=== PATIENT | female | born 1970 | race Caucasian/White ===

== ENCOUNTER → 2020-09-26 | Outpatient (CLI) | payer OTHER ==
--- NOTE | 2020-09-27 04:17 | MR ---
EXAMINATION TYPE: MR shoulder LT wo con DATE OF EXAM: 09/26/2020 COMPARISON: None HISTORY: Left Shoulder Pain x 7years Multiplanar multiecho imaging of the left shoulder was performed without contrast. There is 18 mm area of increased fluid signal in the anterior aspect of the humeral head. The suprasp inatus tendon is intact. There is no retraction. The biceps tendon is intact. Subscapularis tendon is intact. Glenoid lyubov appear normal. I see no fracture line. Scapula is intact. There is small amoun t of fluid in the subacromial bursa. There is small shoulder joint effusion. IMPRESSION: No definite tear of the supraspinatus tendon. There is some significant degenerative thinning of the tendon however on the anterior aspect of the tendon. There is slight increased joint fluid at the glory ulder and also subacromial bursa consistent with some synovitis. Increased fluid signal in the anterior humeral head suggestive of a bone bruise or degenerative cyst formation.
== END | disposition home or self-care (01) ==
LOC: RADMRIMAIN 10:48
PROVIDERS: ATTEND Orthopaedic Surgery
DX: M67.814 Other specified disorders of tendon, left shoulder (principal)